=== PATIENT | male | born 1995 | race Caucasian/White ===

== ENCOUNTER 2016-09-20 22:19 | Emergency (ER) | payer BC ==
[2016-09-20 22:24] VITALS: BP 147/89; PULSE 82; RESP 18; TEMP 99; O2SAT 95
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
== END 2016-09-26 19:00 | disposition home or self-care (01) ==
PROC: 0HQ1XZZ Repair Face Skin, External Approach (ICD-10-PCS; principal; 2016-09-20)
DX: S01.81XA Laceration without foreign body of other part of head, initial encounter (principal); W25.XXXA Contact with sharp glass, initial encounter